=== PATIENT | female | born 1935 | race Caucasian/White ===

== ENCOUNTER → 2016-05-12 | Outpatient (CLI) | payer MEDICARE, OTHER ==
[2016-04-23 14:20] VITALS: BP 135/71
[~2016-05-12] MED LIST: ACET1TAB30 PO; BENADRYL; BENZ100C PO; BUPR150T8 PO; CIPR500T94 PO; DIPH-121 PO; FENO145T PO; HYDR-2678 PO; HYDR-971 PO; HYDR453. TP; LOSA50TA6 PO; METR500T PO; MUPI15CR TP; POLY17PO5 PO; TOLT2CAP PO; TRAM50TA PO
[2016-05-12 22:28] LABS: HEMOGLOBIN A1C 5.5 % (4.8-5.6)
== END | disposition home or self-care (01) ==
LOC: SPEC 07:45
PROVIDERS: ATTEND Family Medicine
DX: E78.5 Hyperlipidemia, unspecified (principal)
CPT/HCPCS: 36415; 83036

== ENCOUNTER → 2016-06-06 | Outpatient (CLI) | payer MEDICARE, OTHER ==
[2016-04-23 14:20] VITALS: BP 135/71
--- NOTE | 2016-06-06 16:50 | RAD ---
CT scan of the lumbar spine without contrast 06/06/2016 Clinical history: Low back pain with radiculopathy for several months. History of previous lumbar spine surgery. Technique: Unenhanced, contiguous, 0.625 mm axial sections were obtained through the lumbar spine. 3 mm reconstructed sagittal, axial and coronal images were obtained. One or more of the following individualized dose reduction techniques were utilized for this study: 1. Automated exposure control. 2. Adjustment of the mA and/or kV according to patient size. 3. Use of iterative reconstruction technique. Findings: Comparison study is dated 04/10/2014. Sagittal and coronal reconstructed images demonstrate minimal S shaped curvature of the thoracolumbar spine. The patient is status post discectomy and fusion at L4-5 using pedicle screws and stabilizing rods and bone graft material. The patient is status post laminectomy at L5. Fusion across L4-5 and L5-S1 disc spaces is seen. Degenerative changes consisting of vertebral endplate sclerosis, disc space narrowing, mild anterior and posterior vertebral body osteophyte formation and vacuum disc phenomenon are seen predominantly at L3-4. Atherosclerotic calcification of the abdominal aorta and its branches is noted. On the axial images the changes of degenerative disc disease are seen throughout the lumbar disc spaces. These consist of mild to moderate generalized disc bulges, degenerative changes involving the facet joints and mild to moderate ligamentum flavum hypertrophy. These findings results in moderate central spinal canal stenosis at L2-3 and severe central spinal canal stenosis at L3-4. Mild to moderate left greater than right neural foraminal stenosis is seen at L2-3. Moderate bilateral neural foraminal stenosis is seen at L3-4. Mild to moderate bilateral neural foraminal stenosis is seen at L4-5 and L5-S1. Impression: 1. Status post fusion at L4-5 and laminectomy at L5. 2. The changes of degenerative disc disease are seen throughout the lumbar spine. These findings result in moderate central spinal canal stenosis at L2-3 and severe central spinal canal stenosis at L3-4. Multilevel neural foraminal stenosis is seen as outlined above.
== END | disposition home or self-care (01) ==
LOC: CT 13:05
PROVIDERS: ATTEND Family Medicine
DX: M51.36 Other intervertebral disc degeneration, lumbar region (principal); M24.20 Disorder of ligament, unspecified site
CPT/HCPCS: 72131

== ENCOUNTER → 2016-07-29 | Outpatient (CLI) | payer MEDICARE, OTHER ==
[2016-04-23 14:20] VITALS: BP 135/71
[~2016-07-29] MED LIST changes: -FENO145T PO; +FENO145T32 PO
[2016-07-29 12:03] LABS: BILIRUBIN,URINE NEG (NEG); CLARITY,URINE CLOUDY; COLOR,URINE YELLOW; GLUCOSE,URINE NEG (NEG); NITRITE,URINE NEG (NEG); UROBILINOGEN,URINE 0.2 mg/dL (0.2 mg/dL)
[2016-07-29 12:04] LABS: BACTERIA,URINE FEW /HPF (0-FEW); SQUAMOUS EPITHELIAL CELL,UR FEW /LPF; WBC,URINE >40 /HPF (0-4)
== END | disposition home or self-care (01) ==
LOC: SPEC 11:46
PROVIDERS: ATTEND Family Medicine
DX: N39.0 Urinary tract infection, site not specified (principal)
CPT/HCPCS: 81001; 87086; 87186

== ENCOUNTER → 2016-09-14 | Outpatient (CLI) | payer MEDICARE, OTHER ==
[2016-04-23 14:20] VITALS: BP 135/71
== END | disposition home or self-care (01) ==
LOC: MAMMO 10:50
PROVIDERS: ATTEND Family Medicine
DX: Z53.21 Procedure and treatment not carried out due to patient leaving prior to being seen by health care provider (principal)

== ENCOUNTER → 2016-09-14 | Outpatient (CLI) | payer MEDICARE, OTHER ==
[2016-04-23 14:20] VITALS: BP 135/71
== END | disposition home or self-care (01) ==
LOC: SPEC 07:52
PROVIDERS: ATTEND Family Medicine
DX: E78.2 Mixed hyperlipidemia (principal)
CPT/HCPCS: 80061

== ENCOUNTER → 2016-09-16 | Outpatient (CLI) | payer MEDICARE, OTHER ==
[2016-04-23 14:20] VITALS: BP 135/71
[2016-09-16 15:25] LABS: BASO # 0.1 x10^3/uL (0.0-0.2); BASO % 1 % (0-3); EOS # 0.1 x10^3/uL (0.0-0.7); EOS % 1 % (0-3); HEMATOCRIT 41.1 % (36.0-47.0); LYMPH # 0.8 x10^3/uL (1.0-4.8); LYMPH % 12 % (24-48); MEAN CORPUSCULAR HEMOGLOBIN 35 pg (25-35); MEAN CORPUSCULAR HGB CONC 34 g/dL (31-37); MEAN CORPUSCULAR VOLUME 102 fL (79-100); MONO # 0.6 x10^3/uL (0.0-1.1); MONO % 10 % (0-9); NEUT # 4.7 x10^3uL (1.8-7.7); NEUT % 76 % (31-73); PLATELET COUNT 199 x10^3/uL (140-400); RED BLOOD COUNT 4.05 x10^6/uL (3.50-5.40); RED CELL DISTRIBUTION WIDTH 13.3 % (11.5-14.5); WHITE BLOOD COUNT 6.3 x10^3/uL (4.0-11.0)
--- NOTE | 2016-09-16 15:40 | RAD ---
INDICATION: COUGH COMPARISON: 04/10/2014 FINDINGS: Frontal and lateral views of chest obtained. No definite focal airspace consolidation or pulmonary edema. Cardiac silhouette is not grossly enlarged. Tubing running down right-sided chest. Air filled distention of multiple loops of bowel in partially visualized upper abdomen IMPRESSION: No definite focal airspace consolidation. Multiple air-filled distended loops of bowel in the partially visualized upper abdomen. Would correlate with abdominal symptoms to ensure that there is not a pathologic process contributing to this appearance such as ileus or obstruction. If the patient is having abdominal symptoms dedicated images of the abdomen could be obtained
== END | disposition home or self-care (01) ==
LOC: DXRAD 14:50
PROVIDERS: ATTEND Family Medicine
DX: R05 Cough (principal)
CPT/HCPCS: 36415; 71020; 85027

== ENCOUNTER → 2016-11-21 | Outpatient (CLI) | payer MEDICARE, OTHER ==
[2016-04-23 14:20] VITALS: BP 135/71
--- NOTE | 2016-11-21 14:36 | RAD ---
Examination: 2 views of the chest. History: History of shortness of breath Comparison: 09/16/2016 Findings: The cardiomediastinal silhouette grossly appears unremarkable. Mild elevation of the right hemidiaphragm unchanged. There is no acute infiltrate or visualized pneumothorax identified. Tubing projecting in the right chest wall region likely shunt tubing is unchanged. Impression No acute cardiopulmonary findings.
== END | disposition home or self-care (01) ==
LOC: DXRAD 13:18
PROVIDERS: ATTEND Family Medicine
DX: R06.2 Wheezing (principal); R06.02 Shortness of breath
CPT/HCPCS: 71020

== ENCOUNTER → 2017-03-16 | Outpatient (CLI) | payer MEDICARE, OTHER ==
[2016-04-23 14:20] VITALS: BP 135/71
--- NOTE | 2017-03-16 12:21 | RAD ---
Left hand, 3 views, 03/16/2017: History: Hand injury There is patchy bony demineralization. There are moderate degenerative changes at scattered interphalangeal joints. No acute fracture or dislocation is identified. IMPRESSION: No acute bony abnormality is detected.
== END | disposition home or self-care (01) ==
LOC: DXRAD 10:20
PROVIDERS: ATTEND Family Medicine
DX: S69.82XA Other specified injuries of left wrist, hand and finger(s), initial encounter (principal); M19.042 Primary osteoarthritis, left hand; X58.XXXA Exposure to other specified factors, initial encounter; Y93.89 Activity, other specified; Y92.89 Other specified places as the place of occurrence of the external cause; Y99.8 Other external cause status
CPT/HCPCS: 73130

== ENCOUNTER → 2017-03-16 | Outpatient (CLI) | payer MEDICARE, OTHER ==
[2016-04-23 14:20] VITALS: BP 135/71
[2017-03-16 10:26] LABS: CALCIUM 9.5 mg/dL (8.5-10.1); CREATININE 0.7 mg/dL (0.6-1.0); GFR 80.1; POTASSIUM 4.5 mmol/L (3.5-5.1); URIC ACID 4.7 mg/dL (2.6-6.0)
== END | disposition home or self-care (01) ==
LOC: SPEC 09:28
PROVIDERS: ATTEND Family Medicine
DX: R52 Pain, unspecified (principal)
CPT/HCPCS: 36415; 80048; 84550

== ENCOUNTER → 2017-05-10 | Outpatient (CLI) | payer MEDICARE, OTHER ==
[2016-04-23 14:20] VITALS: BP 135/71
[2017-05-10 07:01] LABS: BASO % 1 % (0-3); EOS # 0.2 x10^3/uL (0.0-0.7); EOS % 4 % (0-3); HEMOGLOBIN 11.9 g/dL (12.0-15.5); LYMPH # 1.4 x10^3/uL (1.0-4.8); LYMPH % 29 % (24-48); MEAN CORPUSCULAR HEMOGLOBIN 34 pg (25-35); MEAN CORPUSCULAR HGB CONC 34 g/dL (31-37); MEAN CORPUSCULAR VOLUME 101 fL (79-100); MONO # 0.7 x10^3/uL (0.0-1.1); MONO % 14 % (0-9); NEUT # 2.5 x10^3uL (1.8-7.7); NEUT % 52 % (31-73); PLATELET COUNT 177 x10^3/uL (140-400); RED BLOOD COUNT 3.47 x10^6/uL (3.50-5.40); RED CELL DISTRIBUTION WIDTH 13.2 % (11.5-14.5); WHITE BLOOD COUNT 4.8 x10^3/uL (4.0-11.0)
[2017-05-10 07:09] LABS: CALCIUM 8.6 mg/dL (8.5-10.1); CREATININE 0.7 mg/dL (0.6-1.0); GFR 80.1; POTASSIUM 3.8 mmol/L (3.5-5.1)
[2017-05-11 06:12] LABS: HEMOGLOBIN A1C 5.6 % (4.8-5.6)
== END | disposition home or self-care (01) ==
LOC: SPEC 06:19
PROVIDERS: ATTEND Family Medicine
DX: E78.5 Hyperlipidemia, unspecified (principal); I10 Essential (primary) hypertension; R79.89 Other specified abnormal findings of blood chemistry
CPT/HCPCS: 36415; 80048; 83036; 85025

== ENCOUNTER → 2017-06-19 | Outpatient (CLI) | payer MEDICARE, OTHER ==
[2016-04-23 14:20] VITALS: BP 135/71
--- NOTE | 2017-06-19 13:02 | RAD ---
CT scan of the head without contrast 06/19/2017 CLINICAL HISTORY: Hydrocephalus with increased vision loss. TECHNIQUE: Unenhanced, contiguous, 5 mm axial sections were obtained through the head. One or more of the following individualized dose reduction techniques were utilized for this study: 1. Automated exposure control. 2. Adjustment of the mA and/or kV according to patient size. 3. Use of iterative reconstruction technique. FINDINGS: Comparison study is dated 04/08/2016. A right frontal ventriculostomy tube is unchanged position. Dilatation of the lateral, third and fourth ventricles is again seen which is unchanged from the previous examination. No acute parenchymal abnormality is seen. No extra-axial fluid collection is noted. No skull fracture is seen. IMPRESSION: Stable CT appearance of the dilated ventricular system with shunt in place. No acute intracranial abnormality is seen. Electronically signed by: Emanuel Rolon MD (06/19/2017 12:58 PM) [id number]
== END | disposition home or self-care (01) ==
LOC: CT 11:12
PROVIDERS: ATTEND Psychiatry & Neurology Neurology with Special Qualifications in Child Neurology
DX: G91.2 (Idiopathic) normal pressure hydrocephalus (principal); R51 Headache
CPT/HCPCS: 70450

== ENCOUNTER → 2019-08-09 | Outpatient (CLI) | payer MEDICARE, OTHER ==
[2016-04-23 14:20] VITALS: BP 135/71
[~2019-08-09] MED LIST changes: +HYDR-3165 PO; -HYDR-971 PO; -LOSA50TA6 PO; +LOSA50TA86 PO
--- NOTE | 2019-08-09 13:39 | RAD ---
EXAM: CT Head without IV contrast INDICATION: Reason: NORMAL PRESSURE HYDROCEPHALUS / Spl. Instructions: / History: TECHNIQUE: Multi-detector row CT images were obtained of the head without the use of IV contrast. All CT scans performed at this facility utilize dose optimization techniques as appropriate to the exam, including the following: Automated exposure control and adjustment of the mA and/or KV according to patient size (this includes techniques or standardized protocols for targeted exams where dose is indication/reason for exam). COMPARISON: Noncontrast head CT of 06/19/2017 FINDINGS: BRAIN PARENCHYMA: No evidence of acute intraparenchymal hemorrhage or infarct. No abnormal parenchymal density or mass. VENTRICLES & EXTRA-AXIAL SPACES: Ventricles are disproportionately enlarged but unchanged in the interval. Right frontal approach ventriculostomy catheter is present tip terminating against the midline septum pellucidum at the level of mid lateral ventricular body. Third ventricle measures 1.8 cm transverse diameter. Basilar cisterns are patent. No pathologic extra-axial fluid collection or mass. ORBITS: Orbital contents are unremarkable. SINUSES: Visualized paranasal sinuses and mastoid air cells are clear. OSSEOUS & SOFT TISSUES: Calvarium and skull base are intact. IMPRESSION: No change in findings of hydrocephalus with right frontal approach ventriculostomy catheter terminating near midline at the level of the mid interventricular septum. No acute superimposed intracranial process. Electronically signed by: Sathya Lawrence MD (08/09/2019 1:36 PM) [id number]
== END ==
LOC: CT 10:52
PROVIDERS: ATTEND Family Medicine
DX: G91.2 (Idiopathic) normal pressure hydrocephalus (principal)
CPT/HCPCS: 70450